=== PATIENT | female | born 1980 | race Two or more races ===

== ENCOUNTER 2025-03-03 12:57 | Emergency (ER) | payer OTHER ==
[~2025-03-03] VITALS: Ht 157.5 cm; Wt 108.9 kg
[2025-03-03] MEDS ORDERED: AMLODIPINE-OLM1 EACH PO (13:51)
[2025-03-03] MEDS ORDERED: TETANUS & DIPHTHERIA TOX,ADULT 0.5 ML VIAL IM ONE (14:15)
[2025-03-03] MEDS ORDERED: KETOROLAC TROMETHAMINE 60 MG VIAL IM ONE ×2 (14:15→14:22)
[2025-03-03] MEDS ORDERED: LIDOCAINE HCL 1% 10ML VIAL PERCUT ONE (14:15)
[2025-03-03] MEDS ORDERED: CEFTRIAXONE SODIUM 1,000 MG VIAL IM ONE (14:15)
[2025-03-03] MEDS ORDERED: CEFTRIAXONE SODIUM 1,000 MG VIAL ONE (14:23)
[2025-03-03] MEDS ORDERED: LIDOCAINE HCL 1% 10ML VIAL ONE (14:23)
[2025-03-03] MEDS ORDERED: PEPCID AC20 MG PO (14:55)
[2025-03-03] MEDS ORDERED: CEFUROXIME500 MG PO (14:55)
[2025-03-03] MEDS ORDERED: DIPHTH,PERTUSS(ACELL),TET VAC 0.5 ML SYRINGE IM ONE (15:01)
== END 2025-03-03 15:36 | disposition home or self-care (01) ==
LOC: ER 12:58
DX: S61.421A Laceration with foreign body of right hand, initial encounter (principal); W45.8XXA Other foreign body or object entering through skin, initial encounter; Y93.89 Activity, other specified; Y92.89 Other specified places as the place of occurrence of the external cause; Y99.9 Unspecified external cause status; I10 Essential (primary) hypertension

== ENCOUNTER → 2025-03-13 | Emergency (ER) | payer OTHER ==
[~2025-03-13] VITALS: Ht 157.5 cm; Wt 108.9 kg
[~2025-03-13] MED LIST: AMLODIPINE-OLM1 EACH PO; CEFUROXIME500 MG PO; PEPCID AC20 MG PO
[2025-03-13 10:49] VITALS: BP 134/90; O2SAT 96
== END | disposition home or self-care (01) ==
LOC: ER 10:13
DX: Z48.02 Encounter for removal of sutures (principal)